=== PATIENT | male | born 2000 | race Caucasian/White ===

== ENCOUNTER 2020-11-09 19:22 | Emergency (ER) | payer OTHER ==
[~2020-11-09] VITALS: Ht 175.3 cm; Wt 72.6 kg
[2020-11-09 19:25] VITALS: BP 121/73
--- NOTE | 2020-11-09 19:28 | NUR ---
TO LOBBY A/W BED AMBULATORY
--- NOTE | 2020-11-09 21:33 | NUR ---
PT AMBULATED TO BED 04.
--- NOTE | 2020-11-09 21:40 | NUR ---
19 YO/M BIB SELF W CO OF DIZZYNESS X1.5 WEEKS AND REPORTS HAVING DIFFICULTY FOCUSING. REPORTS WHEN SYMPTOMS FIRST BEGAN FEEELING FAINT, PATIENT DENIES LOC, INJURY, BLURRY VISION. PATIENT ALSO REPORTS SOMETIMES EXPERIENCING L SIDED CHEST PAIN W LAST EPISODE [id number] AGO LASTING APPROX 1 MINUTE SHARP NON-RADIATING. DENIES ANY PAIN OR CHEST PAIN AT THIS TIME. DENIES SOB. DENIES N/V/D. PATIENT AOX4, GCS 15, PERRL 4MM, S1S2 PRESENT, CAP REFIL <3SEC, BREATHING EVEN AND UNLABORED. VSS CONNECTED TO MONITOR. PATIENT LAYING IN BED LOCKED INLOWEST POSITION. X1 SIDERAIL UP. NAD NOTED, WILL CONTINUE TO MONITOR. PMH:DENIES NKA
[2020-11-09] MEDS ORDERED: MECL-303 PO (22:50)
[2020-11-09] MEDS: MECLIZINE 25 MG TAB PO ONE (23:01)
--- NOTE | 2020-11-09 23:18 | NUR ---
PT GIVEN DISCHARGE INSTRUCTIONS AND MEDIATION TEACHING BY DR. MORROW. RX OF MECLIZINE GIVEN. PT AMBULATORY WITH STEADY GAIT TO PERSONAL VEHICLE. PT DISCHARGED AT THIS TIME.
== END 2020-11-09 23:18 | disposition home or self-care (01) ==
LOC: MED 19:22
DX: R42 Dizziness and giddiness (principal); H81.10 Benign paroxysmal vertigo, unspecified ear; F17.210 Nicotine dependence, cigarettes, uncomplicated; Z79.899 Other long term (current) drug therapy
CPT/HCPCS: 93005; 99283; J8597